=== PATIENT | male | born 1990 | race African-American/Black ===

== ENCOUNTER 2020-05-12 07:49 | Emergency (ER) | payer OTHER ==
[~2020-05-12] VITALS: Ht 165.1 cm; Wt 64.0 kg
[2020-05-12 07:53] VITALS: BP 148/75
[2020-05-12 08:23] LABS: BASOPHILS % (AUTO) 0.6 % (0.0-2.0); EOSINOPHILS % (AUTO) 0.2 % (0.0-4.0); HEMATOCRIT 47.9 % (36-52); HEMOGLOBIN 16.1 g/dL (12.0-18.0); LYMPHOCYTES # (AUTO) 1.3 K/uL (2.0-11.5); LYMPHOCYTES % (AUTO) 17.7 % (20.5-51.1); MEAN CORPUSCULAR HEMOGLOBIN 30 pg (27-31); MEAN CORPUSCULAR HGB CONC 34 g/dL (33-37); MEAN CORPUSCULAR VOLUME 90.4 fL (80-94); MONOCYTES # (AUTO) 0.6 K/uL (0.8-1.0); MONOCYTES % (AUTO) 8.4 % (1.7-9.3); NEUTROPHILS # (AUTO) 5.4 K/uL (1.8-7.7); NEUTROPHILS % (AUTO) 73.1 % (42.2-75.2); PLATELET COUNT (AUTO) 212 K/uL (140-450); RED CELL DISTRIBUTION WIDTH 13.9 % (11.6-13.7); WHITE BLOOD COUNT (AUTO) 7.4 K/uL (4.8-10.8)
[2020-05-12 08:39] LABS: ALBUMIN 4.2 g/dL (3.4-5.0); ANION GAP 13.4 (8-16); CARBON DIOXIDE 29.4 mmol/L (21-32); CREATININE 1.3 mg/dL (0.6-1.3); POTASSIUM 3.8 mmol/L (3.5-5.1); TOTAL BILIRUBIN 0.4 mg/dL (0.0-1.0)
[2020-05-12 09:11] VITALS: BP 120/78
== END 2020-05-12 09:10 | disposition home or self-care (01) ==
LOC: MED 07:49
DX: R07.9 Chest pain, unspecified (principal)
CPT/HCPCS: 36415; 71045; 80053; 83690; 84484; 85025; 93005; 99285

== ENCOUNTER 2020-12-24 17:42 | Emergency (ER) | payer OTHER ==
[~2020-12-24] VITALS: Ht 167.6 cm; Wt 70.3 kg
[2020-12-24 17:47] VITALS: BP 120/81
[2020-12-24] MEDS ORDERED: NACL 0.9% 1,000 ML IV ONE (17:55)
[2020-12-24 18:11] LABS: BASOPHILS % (AUTO) 0.6 % (0.0-2.0); EOSINOPHILS # (AUTO) 0.1 K/uL (0-0.4); EOSINOPHILS % (AUTO) 1.7 % (0.0-4.0); HEMATOCRIT 45.8 % (36-52); HEMOGLOBIN 15.4 g/dL (12.0-18.0); LYMPHOCYTES # (AUTO) 1.8 K/uL (2.0-11.5); LYMPHOCYTES % (AUTO) 32.5 % (20.5-51.1); MEAN CORPUSCULAR HEMOGLOBIN 30 pg (27-31); MEAN CORPUSCULAR HGB CONC 34 g/dL (33-37); MEAN CORPUSCULAR VOLUME 89.5 fL (80-94); MONOCYTES # (AUTO) 0.5 K/uL (0.8-1.0); MONOCYTES % (AUTO) 9.2 % (1.7-9.3); NEUTROPHILS # (AUTO) 3.1 K/uL (1.8-7.7); PLATELET COUNT (AUTO) 230 K/uL (140-450); RED BLOOD CELL COUNT(AUTO) 5.12 MIL/uL (4.20-6.10); WHITE BLOOD COUNT (AUTO) 5.6 K/uL (4.8-10.8)
--- NOTE | 2020-12-24 18:20 | NUR ---
30 Y/O MALE C/O DIARRHEA TWICE THIS AM AND LEFT CHEST TIGHTNESS. PT DENIES PAIN AT THIS TIME. PT STATES THAT HE HAS BEEN WORKING OUT MORE LATELY AND CHEST FEELS TIGHT. ON ASSESSMENT, ABD IS FLAT, SOFT, AND NONTENDER WITH ACTIVE BOWEL SOUNDS X4 QUAD. PT DENIES BLOOD IN STOOL. PT DENIES N/V/SOB/COUGH. PT IS A/O X4 WITH EVEN AND UNLABORED RESPIRATIONS. PT IS LAYING IN BED WITH BED IN LOWEST POSITION, BRAKES LOCKED, X1 SIDERAIL UP. PMH: DENIES NKA
[2020-12-24 18:26] LABS: ALBUMIN 3.8 g/dL (3.4-5.0); ANION GAP 8.1 (8-16); POTASSIUM 4.1 mmol/L (3.5-5.1); TOTAL BILIRUBIN 0.5 mg/dL (0.0-1.0)
--- NOTE | 2020-12-24 19:10 | NUR ---
DR TALAMANTES AT BEDSIDE
--- NOTE | 2020-12-24 19:12 | NUR ---
REPORT GIVEN TO ALPESH SCHAFFER. TRANSFER OF CARE AT THIS TIME.
--- NOTE | 2020-12-24 19:13 | NUR ---
PT WAS FOUND IN SEMI-BENAVIDES'S POSITION IN BED. PT DENIES MEDICAL COMPLAINTS AT THIS TIME. PT STATES NO DISTRESS. BED LOCKED IN LOWEST POSITION WITH 1 SIDE RAIL UP.
--- NOTE | 2020-12-24 19:15 | NUR ---
PT AMBULATED TO RESTROOM
--- NOTE | 2020-12-24 19:30 | NUR ---
ekg performed at bedside. ekg reads sinus rhythm @ 58
[2020-12-24 19:46] VITALS: BP 120/81
--- NOTE | 2020-12-24 19:46 | NUR ---
Patient discharged with v/s stable. Written and verbal after care instructions given and explained. Patient verbalized understanding. Ambulatory with steady gait. All questions addressed prior to discharge. Advised to follow up with PMD.
== END 2020-12-24 19:46 | disposition home or self-care (01) ==
LOC: MED 17:42
DX: R00.2 Palpitations (principal); R19.7 Diarrhea, unspecified
CPT/HCPCS: 36415; 80053; 85025; 93005; 99284; J7030

== ENCOUNTER 2021-06-16 08:30 | Emergency (ER) | payer OTHER ==
[~2021-06-16] VITALS: Ht 167.6 cm; Wt 61.7 kg
[2021-06-16 08:39] VITALS: BP 113/72
--- NOTE | 2021-06-16 08:47 | NUR ---
PT TO CHAIR B. C/O "WOKE UP SHAKING" NO TRAUMA, NO PAIN,06/01 [facility] FOR SAME S/S. NOW PT FEELS FINE. ER MD AT CHAIR SIDE FOR EVAL. PT DENIES N/V/D; SKIN IS INTACT, PINK/WARM/DRY; AAOX4, PERRL, WITH EVEN AND STEADY GAIT; LUNGS CLEAR BL, BREATHING UNLABORED; HR EVEN AND REGULAR, BL PERIPHERAL PULSES PRESENT; BS ACTIVE X4, NO TENDERNESS TO PALPATION, PT DENIES ANY FEVER, CP, SOB, OR COUGH AT THIS TIME; PT STATES 0/10 PAIN AT THIS TIME; VSS; PATIENT POSITIONED FOR COMFORT.
[2021-06-16 09:39] VITALS: BP 111/70
--- NOTE | 2021-06-16 09:40 | NUR ---
Patient discharged with v/s stable. Written and verbal after care instructions given and explained. Patient alert, oriented and verbalized understanding of instructions. Ambulatory with steady gait. All questions addressed prior to discharge. ID band removed. Patient advised to follow up with PMD. Rx of NONE given. Patient educated on indication of medication including possible reaction and side effects. Opportunity to ask questions provided and answered.
== END 2021-06-16 09:40 | disposition home or self-care (01) ==
LOC: MED 08:30
DX: R00.2 Palpitations (principal); R06.02 Shortness of breath; R25.1 Tremor, unspecified; Z91.018 Allergy to other foods
CPT/HCPCS: 93005; 99283